=== PATIENT | male | born 2000 | race African-American/Black ===

== ENCOUNTER 2023-09-13 14:22 | Emergency (ER) | payer MEDICAID ==
[~2023-09-13] VITALS: Ht 188 cm; Wt 94.5 kg
[2023-09-13 14:37] VITALS: BP 147/96; PULSE 60; RESP 16; TEMP 98.2
[2023-09-13] MEDS ORDERED: ACET-3385 PO (17:29)
[2023-09-13] MEDS ORDERED: IBUP-1492 PO (17:29)
== END 2023-09-13 18:00 | disposition home or self-care (01) ==
LOC: EMS 14:22
DX: S42.301A Unspecified fracture of shaft of humerus, right arm, initial encounter for closed fracture (principal); V29.888A Rider (driver) (passenger) of other motorcycle injured in other specified transport accidents, initial encounter; Y93.89 Activity, other specified; Y92.89 Other specified places as the place of occurrence of the external cause; Y99.8 Other external cause status
CPT/HCPCS: 29105; 99284; 73060-TC; 73080-TC; Z7502